=== PATIENT | female | born 1980 | race Caucasian/White ===

== ENCOUNTER 2017-04-24 12:38 | Emergency (ER) | payer BC ==
[2017-04-24 13:05] LABS: ABS Basophils 0.1 10^3/ul (0-0.2); ABS Eosinophils 0 10^3/ul (0-0.6); ABS Lymphocytes 1.2 10^3/ul (1.0-4.8); ABS Monocytes 0.2 10^3/ul (0-0.8); ABS Neutrophils 4.5 10^3/ul (1.5-7.7); ABS Nucleated RBC 0 10^3/ul; Eosinophil % 0.3 % (0-6); Hematocrit 42 % (35-47); Hemoglobin 13.9 g/dl (12.0-16.0); Lymphocyte % 20.4 % (25-47); Mean Corpuscular HGB Conc 34 g/dl (31-36); Mean Corpuscular Hemoglobin 31 pg (27-31); Mean Corpuscular Volume 93 fL (80-97); Mean Platelet Volume 8 um3 (7.4-10.4); Nucleated Red Blood Cells % 0; Platelet Count 248 10^3/ul (150-450); Red Blood Count 4.45 10^6/ul (4.0-5.4); Red Cell Distribution Width 13 % (10.5-15); White Blood Count 6.1 10^3/ul (3.5-10.8)
[2017-04-24] MEDS ORDERED: LORazepam TAB(*) 1 MG PO ONE ×2 (13:10→16:54)
[2017-04-24 13:18] LABS: EGFR Non-African American 83.9 (>60)
[2017-04-24 13:22] LABS: Urine Appearance Turbid; Urine Blood 3+ (Negative); Urine Color Yellow; Urine Ketones Negative (Negative); Urine Protein Negative (Negative); Urine Specific Gravity 1.027 (1.010-1.030); Urine Urobilinogen Negative (Negative)
--- NOTE | 2017-04-24 13:25 | ED ---
Psychiatric Complaint - HPI Summary HPI Summary: Patient presents to the ED with CC of severe anxiety and anxiety attacks which have persisted for several days without letting up. She has a history of such and has been on a low dose of sertraline. She is afraid to take any medications d/t a reaction the first time she had an SSRI. She notes to extra stress. Denies HI or SI. Denies drug or ETOH use. She has been otherwise healthy. She does note to nausea and diarrhea with the anxiety and states this is normal for her to have this when she becomes anxious for too long. She would like an eval. - History Of Current Complaint Chief Complaint: EDPsychosocial Time Seen by Provider: 04/24/17 12:46 Hx Obtained From: Patient Hx Last Menstrual Period: 06/16/13 ?: No Onset/Duration: Sudden Onset Timing: Constant Severity Initially: Moderate Severity Currently: Moderate Character: Anxious Aggravating Factor(s): Nothing Alleviating Factor(s): Medication Associated Signs And Symptoms: Positive: Paranoid Behavior, Appetite Change, Social Withdrawal, Social Isolation - Allergies/Home Medications Allergies/Adverse Reactions: Allergies Allergy/AdvReac Type Severity Reaction Status Date / Time No Known Allergies Allergy Verified 06/23/13 08:55 PMH/Surg Hx/FS Hx/Imm Hx Previously Healthy: Yes Endocrine/Hematology History: Denies: Hx Diabetes, Hx Thyroid Disease Cardiovascular History: Denies: Hx Hypertension Respiratory History: Denies: Hx Asthma, Hx Chronic Obstructive Pulmonary Disease (COPD) GI History: Denies: Hx Ulcer - Immunization History Hx Pertussis Vaccination: No Immunizations Up to Date: Unable to Obtain/Confirm Infectious Disease History: No Infectious Disease History: Denies: Hx Clostridium Difficile, Hx Hepatitis, Hx Human Immunodeficiency Virus (HIV), Hx of Known/Suspected MRSA, Hx Shingles, Hx Tuberculosis, Hx Known/ Suspected VRE, Traveled Outside the [place] in Last 30 Days - Social History Occupation: Employed Full-time Lives: With Family Alcohol Use: Occasionally Hx Substance Use: No Substance Use Type: Reports: None Hx Tobacco Use: No Smoking Status (MU): Never Smoked Tobacco Review of Systems Constitutional: Negative Negative: Fever, Chills, Fatigue, Skin Diaphoresis Eyes: Negative Positive: Palpitations Respiratory: Negative Positive: Vomiting, Diarrhea, Nausea Genitourinary: Negative Positive: no symptoms reported, see HPI Musculoskeletal: Negative Neurological: Negative Positive: Anxious All Other Systems Reviewed And Are Negative: Yes Physical Exam Triage Information Reviewed: Yes Vital Signs On Initial Exam: Initial Vitals Temp Pulse Resp BP Pulse Ox 97.7 F 103 17 111/78 95 04/24/17 12:40 04/24/17 12:40 04/24/17 12:40 04/24/17 12:40 04/24/17 12:40 Vital Signs Reviewed: Yes Appearance: Positive: Well-Appearing, Well-Nourished Skin: Positive: Warm, Skin Color Reflects Adequate Perfusion Head/Face: Positive: Normal Head/Face Inspection Eyes: Positive: EOMI, PUJA, Conjunctiva Clear Neck: Positive: Supple, Nontender, No Lymphadenopathy Respiratory/Lung Sounds: Positive: Clear to Auscultation, Breath Sounds Present Cardiovascular: Positive: RRR, Pulses are Symmetrical in both Upper and Lower Extremities Musculoskeletal: Positive: Normal, Strength/ROM Intact Neurological: Positive: Alert, Oriented to Person Place, Time Psychiatric: Positive: Anxious - [place] Coma Scale Coma Scale Total: 15 Diagnostics - Vital Signs Vital Signs Temp Pulse Resp BP Pulse Ox 04/24/17 12:40 97.7 F 103 17 111/78 95 - Laboratory Lab Results: Lab Results 04/24/17 Range/Units 12:55 WBC 6.1 (3.5-10.8) 10^3/ul RBC 4.45 (4.0-5.4) 10^6/ul Hgb 13.9 (12.0-16.0) g/dl Hct 42 (35-47) % MCV 93 (80-97) fL MCH 31 (27-31) pg MCHC 34 (31-36) g/dl RDW 13 (10.5-15) % Plt Count 248 (150-450) 10^3/ul MPV 8 (7.4-10.4) um3 Neut % (Auto) 74.0 (38-83) % Lymph % (Auto) 20.4 L (25-47) % [place] % (Auto) 3.7 (1-9) % Eos % (Auto) 0.3 (0-6) % Baso % (Auto) 1.6 (0-2) % Absolute Neuts (auto) 4.5 (1.5-7.7) 10^3/ul Absolute Lymphs (auto) 1.2 (1.0-4.8) 10^3/ul Absolute Monos (auto) 0.2 (0-0.8) 10^3/ul Absolute Eos (auto) 0 (0-0.6) 10^3/ul Absolute Basos (auto) 0.1 (0-0.2) 10^3/ul Absolute Nucleated RBC 0 10^3/ul Nucleated RBC % 0 Result Diagrams: 04/24/17 12:55 04/24/17 12:55 Lab Statement: Any lab studies that have been ordered have been reviewed, and results considered in the medical decision making process. Course/Dx - Course Course Of Treatment: During the course of treatment, patient is offered ativan and accepts. She is cleared for MHU. All labs and UA are WNL. After mental health eval, patient is requesting hormone testing. I have advised she seek and OBGYN and have discussed her thyroid levels. At severe anxiety, she also has symptoms of dizziness. I have given meclizine and a prescription for ativan. She is Ok with discharge and follow up with OBGYN. She is to continue on her sertraline. She denies SI/HI on discharge and feels improved. - Differential Dx/Clinical Impression Differential Diagnosis/HQI/PQRI: Positive: Anxiety, Depression Provider Diagnosis: Anxiety Discharge - Discharge Plan Condition: Stable Disposition: HOME Prescriptions: LORazepam TAB(*) [Ativan 1 MG TAB (*)] 1 mg PO Q8H PRN #12 tab MDD 3 PRN Reason: Anxiety Meclizine TAB* [Antivert 12.5 TAB*] 25 mg PO TID #15 tab Patient Education Materials: Anxiety (ED) Referrals: Non Staff,Doctor [Medical Doctor] - Additional Instructions: Follow up as directed Meclizine 50mg up to three times daily for dizziness Ativan 1mg up to three times daily as needed for anxiety
[2017-04-24] MEDS ORDERED: Meclizine TAB* 12.5 MG PO ONE (16:55)
[2017-04-24 17:08] VITALS: BP 108/67
== END 2017-04-24 17:05 | disposition home or self-care (01) ==
LOC: ED 12:38
DX: F41.9 Anxiety disorder, unspecified (principal)
CPT/HCPCS: 36415; 80053; 80307; 80320; 80329; 81003; 81015; 84443; 85025; 99284; A9270-GY; G0480